=== PATIENT | male | born 1965 | race Caucasian/White ===

== ENCOUNTER 2019-01-29 14:56 | Emergency (ER) | payer BC, OTHER ==
--- NOTE | 2019-01-29 15:32 | RAD REPORT ---
EXAM DESCRIPTION: RAD - Chest Single View - 01/29/2019 3:25 pm CLINICAL HISTORY: Hypertension, headache COMPARISON: March 2010 TECHNIQUE: AP portable chest image was obtained 1519 hours . FINDINGS: No focal lung parenchymal process. Interstitial pattern is similar to comparison. Heart an d vasculature are normal. No measurable pleural effusion and no pneumothorax. No acute bony abnormali ty seen. No acute aortic findings suspected. IMPRESSION: No acute cardiopulmonary process.
--- NOTE | 2019-01-29 15:34 | EKG ---
Test Date: 2019-01-29 Test Time: 15:32:06 Law Tutor: PHILIPPE MEASUREMENT RESULTS: Intervals: Rate: 69 WA: 142 QRSD: 108 QT: 386 QTc: 413 [place]: P: 53 WA: 142 QRS: 58 T: 56 INTERPRETIVE STATEMENTS: Normal sinus rhythm Normal ECG Compared to ECG 04/16/2010 07:14:56 Sinus tachycardia no longer present Electronically Signed On 01-29-19 15:33:55 COLLAR STITCHER by Americo Ackerman
--- NOTE | 2019-01-29 15:37 | RAD REPORT ---
EXAM DESCRIPTION: CT - Head Brain Wo Cont - 01/29/2019 3:26 pm CLINICAL HISTORY: Hypertension, headache COMPARISON: None. TECHNIQUE: Axial 5 mm thick images of the head were obtained without IV contrast. All CT scans are performed using dose optimization technique as appropriate and may include automated exposure control or mA/KV adjustment according to patient size. FINDINGS: No intracranial hemorrhage, mass, edema or shift of mid-line structures. No acute infarcti on changes seen. No abnormal extra-axial fluid collections. Ventricles are normal. Mastoid air cells and visualized portions of the paranasal sinuses are clear. No acute bony findings. IMPRESSION: Negative non-contrast CT head examination.
[2019-01-29 15:43] LABS: Protime INR 0.96
[2019-01-29 15:49] LABS: Absolute Lymphocytes (CBC) 3.3 K/uL (0.7-4.9); Basophils % 0.8 % (0-1.3); Hematocrit 40.5 % (39.6-49.0); Lymphocytes % 43.1 % (15.3-44.8); MPV 8.4 fL (7.6-11.3); RBC Red Blood Cell Count 4.24 M/uL (4.33-5.43)
[2019-01-29] MEDS ORDERED: ACETAMINOPHEN 325 MG TABLET ONE (15:55)
[2019-01-29] MEDS ORDERED: LORAZEPAM 0.5 MG TABLET ONE (15:55)
[2019-01-29 16:01] LABS: ALT/SGPT 34 U/L (12-78); AST/SGOT 20 U/L (15-37); Albumin 3.6 g/dL (3.4-5.0); Alkaline Phosphatase 82 U/L (45-117); BUN Blood Urea Nitrogen 14 mg/dL (7-18); Bicarbonate 28 mmol/L (21-32); Bilirubin Direct < 0.1 mg/dL (0-0.2); Bilirubin Total 0.3 mg/dL (0.2-1.0); Glucose Level 96 mg/dL (74-106); Magnesium 2.3 mg/dL (1.8-2.4); NT PRO-BNP 33 pg/mL (<125); Potassium 3.8 mmol/L (3.5-5.1); Protein, Total 7.4 g/dL (6.4-8.2); Sodium Level 140 mmol/L (136-145); Troponin (Emerg Dept Use Only) < 0.02 ng/mL (0.0-0.045)
[2019-01-29] MEDS ORDERED: KETOROLAC 30 MG/ML INJ ONE (16:56)
--- NOTE | 2019-01-29 17:03 | ER ---
Nurse's Notes [facility] Name: Americo Gonzales Age: 53 yrs Sex: Male : 1965 Arrival Date: 01/29/2019 Time: 15:01 Bed 14 Private MD: Diagnosis: Essential (primary) hypertension;Headache Presentation: 01/29 15:05 Presenting complaint: Patient states: high bp reading at home, 184/104, +headache X 2 iw days, not on BP medicine, Advil not helping headache, called Dr. Ackerman office was told to come to ER, denies chest pain. Transition of care: patient was not received from another setting of care. Onset of symptoms was January 27, 2019. Risk Assessment: Do you want to hurt yourself or someone else? Patient reports no desire to harm self or others. Initial Sepsis Screen: Does the patient meet any 2 criteria? No. Patient's initial sepsis screen is negative. Does the patient have a suspected source of infection? No. Patient's initial sepsis screen is negative. Care prior to arrival: None. 15:05 Method Of Arrival: Ambulatory iw 15:05 Acuity: JACKSON 3 iw Historical: - Allergies: 15:08 PENICILLINS; iw - Home Meds: 15:08 None [Active]; iw - PMHx: 15:08 SVT 10 years ago; iw - PSHx: 15:08 left ring finger; left ankle; Appendectomy; iw - Immunization history:: Adult Immunizations not up to date. - Social history:: Smoking status: Patient/guardian denies using tobacco. - Ebola Screening: : Patient negative for fever greater than or equal to 101.5 degrees Fahrenheit, and additional compatible Ebola Virus Disease symptoms Patient denies exposure to infectious person Patient denies travel to an Ebola-affected area in the 21 days before illness onset No symptoms or risks identified at this time. Screenin:09 Abuse screen: Denies threats or abuse. Nutritional screening: No deficits noted. tw2 Tuberculosis screening: No symptoms or risk factors identified. Fall Risk None identified. Assessment: 15:10 General: Appears in no apparent distress. obese, Behavior is calm, cooperative, tw2 appropriate for age. Pain: Denies pain. Neuro: Level of Consciousness is awake, alert, obeys commands, Oriented to person, place, time, situation. Cardiovascular: Heart tones S1 S2 Patient's skin is warm and dry. Respiratory: Airway is patent Respiratory effort is even, unlabored, Respiratory pattern is regular, symmetrical, Breath sounds are clear bilaterally. GI: No signs and/or symptoms were reported involving the gastrointestinal system. Abdomen is round non-distended, obese, Bowel sounds present X 4 quads. : No signs and/or symptoms were reported regarding the genitourinary system. EENT: No signs and/or symptoms were reported regarding the EENT system. Derm: No signs and/or symptoms reported regarding the dermatologic system. Musculoskeletal: Range of motion: intact in all extremities. 15:36 Reassessment: Patient appears in no apparent distress at this time. No changes from tw2 previously documented assessment. Patient and/or family updated on plan of care and expected duration. Pain level reassessed. Patient is alert, oriented x 3, equal unlabored respirations, skin warm/dry/pink. 16:20 Reassessment: Patient appears in no apparent distress at this time. No changes from tw2 previously documented assessment. Patient and/or family updated on plan of care and expected duration. Pain level reassessed. Patient is alert, oriented x 3, equal unlabored respirations, skin warm/dry/pink. 16:50 Reassessment: Provider at bedside at this time with results. tw2 17:20 Reassessment: Patient appears in no apparent distress at this time. No changes from tw2 previously documented assessment. Patient and/or family updated on plan of care and expected duration. Pain level reassessed. Patient is alert, oriented x 3, equal unlabored respirations, skin warm/dry/pink. Vital Signs: 15:08 BP 177 / 94; Pulse 73; Resp 16; Temp 98.0; Pulse Ox 98% on R/A; Weight 140.61 kg; iw Height 6 ft. 0 in. (182.88 cm); Pain 5/10; 15:36 BP 157 / 91; Pulse 72; Resp 17; Pulse Ox 95% on R/A; tw2 16:18 BP 143 / 93; Pulse 78; Resp 17; Pulse Ox 95% on R/A; tw2 16:51 BP 160 / 94; Pulse 75; Resp 17; Pulse Ox 100% on R/A; tw2 15:08 Body Mass Index 42.04 (140.61 kg, 182.88 cm) iw ED Course: 15:01 Patient arrived in ED. mr 15:07 Triage completed. iw 15:08 Arm band placed on. iw 15:08 Bed in low position. Call light in reach. tw2 15:09 Melissa Urbina, RN is Primary Nurse. tw2 15:11 Vidhya Medrano FNP-C is PHCP. snw 15:11 Aly Sheth MD is Attending Physician. snw 15:25 CT Head Brain wo Cont In Process Unspecified. EDMS 15:27 XRAY Chest (1 view) In Process Unspecified. EDMS 15:36 Inserted saline lock: 20 gauge in right antecubital area, using aseptic technique. tw2 Blood collected. 17:20 No provider procedures requiring assistance completed. IV discontinued, intact, tw2 bleeding controlled, No redness/swelling at site. Pressure dressing applied. Administered Medications: 15:56 Drug: Tylenol 650 mg Route: PO; tw2 16:57 Follow up: Response: No adverse reaction tw2 15:56 Drug: Ativan 0.5 mg Route: PO; tw2 16:52 Follow up: Response: No adverse reaction tw2 16:57 Drug: TORadol - Ketorolac 15 mg Route: IVP; Site: right antecubital; tw2 17:15 Follow up: Response: No adverse reaction; Pain is decreased tw2 Outcome: 17:02 Discharge ordered by . snw 17:20 Discharged to home ambulatory. tw2 17:20 Condition: stable 17:20 Discharge instructions given to patient, Instructed on discharge instructions, follow up and referral plans. no drinking with medication, no driving heavy equipment, medication usage, Demonstrated understanding of instructions, follow-up care, medications, Prescriptions given X 1. 17:21 Patient left the ED. tw2 Signatures: Dispatcher [employer] EDWA Vidhya Medrano FNP-C FNP-Toshia Yi Carpio Vira Alexander, RN RN Melissa Urbina RN RN tw2
--- NOTE | 2019-01-29 17:03 | EDPHYS ---
Physician Documentation [facility] Name: Americo Gonzales Age: 53 yrs Sex: Male : 1965 Arrival Date: 01/29/2019 Time: 15:01 Bed 14 Private MD: ED Physician Aly Sheth HPI: 01/29 15:31 This 53 yrs old Male presents to ER via Ambulatory with complaints of High snw Blood Pressure. 15:31 The patient has elevated blood pressure and discovered this at home, with a home snw device. Onset: The symptoms/episode began/occurred acutely, and became persistent. Associated signs and symptoms: Pertinent positives: headache. Severity of symptoms: At its worst the blood pressure was moderate, severe. The patient has not experienced similar symptoms in the past. The patient has not recently seen a physician. pt has yearly work physicals, no PCP, appt with Dr. Ackerman 02/09/19. Historical: - Allergies: 15:08 PENICILLINS; iw - Home Meds: 15:08 None [Active]; iw - PMHx: 15:08 SVT 10 years ago; iw - PSHx: 15:08 left ring finger; left ankle; Appendectomy; iw - Immunization history:: Adult Immunizations not up to date. - Social history:: Smoking status: Patient/guardian denies using tobacco. - Ebola Screening: : Patient negative for fever greater than or equal to 101.5 degrees Fahrenheit, and additional compatible Ebola Virus Disease symptoms Patient denies exposure to infectious person Patient denies travel to an Ebola-affected area in the 21 days before illness onset No symptoms or risks identified at this time. ROS: 15:26 Constitutional: Negative for fever, chills, and weight loss, Eyes: Negative for injury, snw pain, redness, and discharge, ENT: Negative for injury, pain, and discharge, Neck: Negative for injury, pain, and swelling, Cardiovascular: Negative for chest pain, palpitations, and edema, Respiratory: Negative for shortness of breath, cough, wheezing, and pleuritic chest pain, Abdomen/GI: Negative for abdominal pain, nausea, vomiting, diarrhea, and constipation, Back: Negative for injury and pain, : Negative for injury, bleeding, discharge, and swelling, MS/Extremity: Negative for injury and deformity, Skin: Negative for injury, rash, and discoloration, Psych: Negative for depression, anxiety, suicide ideation, homicidal ideation, and hallucinations. 15:26 Neuro: Positive for headache. Exam: 15:26 Constitutional: This is a well developed, well nourished patient who is awake, alert, snw and in no acute distress. Head/Face: Normocephalic, atraumatic. Eyes: Pupils equal round and reactive to light, extra-ocular motions intact. Lids and lashes normal. Conjunctiva and sclera are non-icteric and not injected. Cornea within normal limits. Periorbital areas with no swelling, redness, or edema. ENT: Nares patent. No nasal discharge, no septal abnormalities noted. Tympanic membranes are normal and external auditory canals are clear. Oropharynx with no redness, swelling, or masses, exudates, or evidence of obstruction, uvula midline. Mucous membranes moist. Neck: Trachea midline, no thyromegaly or masses palpated, and no cervical lymphadenopathy. Supple, full range of motion without nuchal rigidity, or vertebral point tenderness. No Meningismus. Chest/axilla: Normal chest wall appearance and motion. Nontender with no deformity. No lesions are appreciated. Cardiovascular: Regular rate and rhythm with a normal S1 and S2. No gallops, murmurs, or rubs. Normal PMI, no JVD. No pulse deficits. Respiratory: Lungs have equal breath sounds bilaterally, clear to auscultation and percussion. No rales, rhonchi or wheezes noted. No increased work of breathing, no retractions or nasal flaring. Abdomen/GI: Soft, non-tender, with normal bowel sounds. No distension or tympany. No guarding or rebound. No evidence of tenderness throughout. Back: No spinal tenderness. No costovertebral tenderness. Full range of motion. Skin: Warm, dry with normal turgor. Normal color with no rashes, no lesions, and no evidence of cellulitis. MS/ Extremity: Pulses equal, no cyanosis. Neurovascular intact. Full, normal range of motion. Neuro: Awake and alert, GCS 15, oriented to person, place, time, and situation. Cranial nerves II-XII grossly intact. Motor strength 5/5 in all extremities. Sensory grossly intact. Cerebellar exam normal. Normal gait. Psych: Awake, alert, with orientation to person, place and time. Behavior, mood, and affect are within normal limits. Vital Signs: 15:08 BP 177 / 94; Pulse 73; Resp 16; Temp 98.0; Pulse Ox 98% on R/A; Weight 140.61 kg; iw Height 6 ft. 0 in. (182.88 cm); Pain 5/10; 15:36 BP 157 / 91; Pulse 72; Resp 17; Pulse Ox 95% on R/A; tw2 16:18 BP 143 / 93; Pulse 78; Resp 17; Pulse Ox 95% on R/A; tw2 16:51 BP 160 / 94; Pulse 75; Resp 17; Pulse Ox 100% on R/A; tw2 15:08 Body Mass Index 42.04 (140.61 kg, 182.88 cm) iw MDM: 15:11 Patient medically screened. snw 15:27 Data reviewed: vital signs, nurses notes. Data interpreted: Pulse oximetry: on room air snw is 98 %. Counseling: I had a detailed discussion with the patient and/or guardian regarding: the historical points, exam findings, and any diagnostic results supporting the discharge/admit diagnosis, the presence of at least one elevated blood pressure reading (>120/80) during this emergency department visit, lab results, radiology results, the need for outpatient follow up. ED course: + basal garcia x 2 days, pressure. 01/29 15:12 Order name: LFT's; Complete Time: 16:27 snw 01/29 15:12 Order name: Basic Metabolic Panel; Complete Time: 16:27 snw 01/29 15:12 Order name: CBC with Diff; Complete Time: 15:55 snw 01/29 15:12 Order name: Magnesium; Complete Time: 16:27 snw 01/29 15:12 Order name: NT PRO-BNP; Complete Time: 16:27 snw 01/29 15:12 Order name: PT-INR; Complete Time: 15:55 snw 01/29 15:12 Order name: Troponin (emerg Dept Use Only); Complete Time: 16:27 snw 01/29 15:12 Order name: XRAY Chest (1 view); Complete Time: 15:42 snw 01/29 15:12 Order name: EKG; Complete Time: 15:13 snw 01/29 15:12 Order name: Cardiac monitoring; Complete Time: 15:12 snw 01/29 15:12 Order name: CT Head Brain wo Cont; Complete Time: 15:42 snw 01/29 15:12 Order name: EKG - Nurse/Tech; Complete Time: 15:35 snw 01/29 15:12 Order name: IV Saline Lock; Complete Time: 15:35 snw 01/29 15:12 Order name: Labs collected and sent; Complete Time: 15:35 snw 01/29 15:12 Order name: O2 Per Protocol; Complete Time: 15:13 snw 01/29 15:12 Order name: O2 Sat Monitoring; Complete Time: 16:02 snw Administered Medications: 15:56 Drug: Tylenol 650 mg Route: PO; tw2 16:57 Follow up: Response: No adverse reaction tw2 15:56 Drug: Ativan 0.5 mg Route: PO; tw2 16:52 Follow up: Response: No adverse reaction tw2 16:57 Drug: TORadol - Ketorolac 15 mg Route: IVP; Site: right antecubital; tw2 17:15 Follow up: Response: No adverse reaction; Pain is decreased tw2 Disposition: 01/30 07:22 Co-signature as Attending Physician, Aly Sheth MD I agree with the assessment and kdr plan of care. Disposition: 01/29/19 17:02 Discharged to Home. Impression: Essential (primary) hypertension, Headache. - Condition is Stable. - Discharge Instructions: General Headache Without Cause, Hypertension, How to Take Your Blood Pressure, [id number], DASH Eating Plan, Rehydration, Adult, Managing Your Hypertension, Form - Blood Pressure Record Sheet. - Prescriptions for Fiorinal 50- 325-40 mg Oral Capsule - take 1 capsule by ORAL route every 4 hours As needed - not to exceed 6 capsules per day; 20 capsule. - Medication Reconciliation Form, Thank You Letter, Antibiotic Education, Prescription Opioid Use, Work release form form. - Follow up: Private Physician; When: 1 week; Reason: Recheck today's complaints, Continuance of care, Re-evaluation by your physician. Follow up: Emergency Department; When: As needed; Reason: Worsening of condition. Signatures: Dispatcher [employer] Aly Arriaga MD MD kdr Therrien, Shelly, TURNTABLE WORKER-C TURNTABLE WORKER-Csnw Vira Monteiro RN RN iw Melissa Urbina RN RN tw2 Corrections: (The following items were deleted from the chart) 01/29 17:21 17:02 01/29/2019 17:02 Discharged to Home. Impression: Essential (primary) tw2 hypertension; Headache. Condition is Stable. Forms are Work release form, Medication Reconciliation Form, Thank You Letter, Antibiotic Education, Prescription Opioid Use. Follow up: Private Physician; When: 1 week; Reason: Recheck today's complaints, Continuance of care, Re-evaluation by your physician. Follow up: Emergency Department; When: As needed; Reason: Worsening of condition. snw
[2019-01-29 18:54] VITALS: TEMP 98
[2019-01-29 18:58] VITALS: BP 160/94; O2SAT 100
== END 2019-01-29 17:21 | disposition home or self-care (01) ==
LOC: ER 14:56
DX: I10 Essential (primary) hypertension (principal); Z88.0 Allergy status to penicillin
CPT/HCPCS: 36415; 70450; 71045; 80048; 80076; 83735; 83880; 84484; 85025; 85610; 93005; 96374; 99284

== ENCOUNTER 2020-01-18 09:58 | Observation (INO) | payer BC ==
[2020-01-18 10:53] LABS: Absolute Lymphocytes (CBC) 2.4 K/uL (0.7-4.9); Basophils % 0.9 % (0-1.3); Lymphocytes % 36.7 % (15.3-44.8); MPV 8.2 fL (7.6-11.3); RBC Red Blood Cell Count 4.48 M/uL (4.33-5.43)
[2020-01-18] MEDS ORDERED: NA CHLORIDE 0.9% 1,000 ML ONE (10:53)
[2020-01-18 11:02] LABS: Protime INR 1.03
--- OUTSIDE RECORDS SUMMARY | 2020-01-18 11:10 | XMS REPORT | Clinical Summary ---
:1965 Author Organization [facility] Address [address] [place] [id number] Care Team Providers Name Role Phone Asked, Pcp Primary Care Provider Unavailable Allergies Not on File Medications Not on file Active Problems Not on file Encounters Date Type Specialty Care Team Description 12/30/2019 Clinical Support Corporate Wellness Faith Wright MD 12/30/2019 Travel after 01/17/2019 Immunizations Name Administration Dates Next Due FLUCELVAX QUAD PF 12/30/2019 Social History Tobacco Use Types Packs/Day Years Used Date Never Assessed Sex Assigned at Date Recorded Not on file COVID-19 Exposure Response Date Recorded In the last month, have you been in contact with No / Unsure 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 Last Filed Vital Signs Not on file Plan of Treatment Health Maintenance Due Date Last Done Comments COLONOSCOPY SCREENING 2015 SHINGLES VACCINES (#1) 2015 INFLUENZA VACCINE Completed 12/30/2019 Results Not on fileafter 01/17/2019 Advance Directives For more information, please contact: [phone] Type Date Recorded Patient Data Reviewer Explanati on Advance Directives, Living Will and Medical Power of Home Health Occupational Therapist
--- OUTSIDE RECORDS SUMMARY | 2020-01-18 11:10 | XMS REPORT | Continuity of Care Document ---
:1965 Author Organization [facility] t Address [address] [place] [address] Care Team Providers Name Role Phone Asked, Pcp Primary Care Physician Unavailable Adriana ORTEGA Attending Clinician Payers Payer Name Policy Type Policy Effective Date Expiration Date Sour ce Number BCBSBCBS CHOICE [id number] 2016 [place] PPO/FEDERAL 00:00:00 [employer] EMPL [id number] 2016-Presen tPPO Problems This patient has no known problems. Allergies, Adverse Reactions, Alerts This patient has no known allergies or adverse reactions. Social History Social Habit Start Date Stop Date Quantity Comments Source Sex Assigned At [place] Exposure to SARS-CoV-2 Not sure Oscar Quintanaist (event) Medications This patient has no known medications. Immunizations Ordered Immunization Filled Immunization Date Status Commen ts Source Name Name FLUCELVAX QUAD PF 2019-12-30 [facility] 00:00:00 [employer] Procedures This patient has no known procedures. Plan of Care Planned Activity Planned Date Details Comments Source Future Scheduled 2015 COLONOSCOPY SCREENING [facility] 00:00:00 [code = COLONOSCOPY SCREENING] Future Scheduled 2015 SHINGLES VACCINES [place] [facility] 00:00:00 (#1) [code = SHINGLES VACCINES (#1)] Encounters Start End Encounter Admission Attending Care Care Encounter Source Date/Time Date/Time Type Type Clinicians Facility Department ID 2019-12-30 2019-12-30 Outpatient [facility] [id number] [place] 00:00:00 00:00:[address] [facility] [address] Results This patient has no known results.
--- NOTE | 2020-01-18 11:12 | RAD REPORT ---
EXAM DESCRIPTION: RAD - Chest Single View - 01/18/2020 10:50 am CLINICAL HISTORY: CHEST PAIN COMPARISON: January 2019 TECHNIQUE: AP portable chest image was obtained 01/18/2020 10:50 am . FINDINGS: Lungs are clear. Heart and vasculature are normal. No measurable pleural effusion and no p neumothorax. No acute bony abnormality seen. No acute aortic findings suspected. IMPRESSION: No acute cardiopulmonary process. No significant change from comparison study.
[2020-01-18 11:17] LABS: ALT/SGPT 34 U/L (12-78); AST/SGOT 21 U/L (15-37); Albumin 3.6 g/dL (3.4-5.0); Alkaline Phosphatase 80 U/L (45-117); BUN Blood Urea Nitrogen 17 mg/dL (7-18); Bicarbonate 29 mmol/L (21-32); Bilirubin Direct < 0.1 mg/dL (0-0.2); Bilirubin Total 0.4 mg/dL (0.2-1.0); Glucose Level 134 mg/dL (74-106); Magnesium 2.4 mg/dL (1.8-2.4); NT PRO-BNP 1745 pg/mL (<125); Potassium 3.8 mmol/L (3.5-5.1); Protein, Total 7.8 g/dL (6.4-8.2); Sodium Level 141 mmol/L (136-145); Troponin (Emerg Dept Use Only) < 0.02 ng/mL (0.0-0.045)
--- NOTE | 2020-01-18 12:08 | ER ---
Nurse's Notes [facility] Name: Americo Gonzales Age: 54 yrs Sex: Male : 1965 Arrival Date: 01/18/2020 Time: 09:59 Bed 7 Private MD: Garrison Xiong Diagnosis: Atrial fibrillation and flutter;Cough;Dyspnea Presentation: 01/17 10:19 Chief complaint: Patient states: Pt scheduled an appointment today with PCP, Dr. Xiong for cough and mild shortness of breath x 1 week. EKG was obtained at Dr. Xiong's office which showed elevated HR at 140 bpm. Pt was sent to ED for further evaluation. Denies CP. Coronavirus screen: cough unrelated to allergies, shortness of breath, Client presents with at least one sign or symptom that may indicate coronavirus-19. Standard/surgical mask placed on the client. Provider contacted for isolation considerations. Ebola Screen: Patient denies exposure to infectious person. Patient denies travel to an Ebola-affected area in the 21 days before illness onset. Initial Sepsis Screen: Does the patient meet any 2 criteria? HR > 90 bpm. No. Patient's initial sepsis screen is negative. Does the patient have a suspected source of infection? No. Patient's initial sepsis screen is negative. Risk Assessment: Do you want to hurt yourself or someone else? Patient reports no desire to harm self or others. Onset of symptoms was January 11, 2020. 10:19 Method Of Arrival: Wheelchair ss 10:19 Acuity: JACKSON 2 ss Historical: - Allergies: 10:23 PENICILLINS; ss - Home Meds: 10:23 valsartan oral oral [Active]; Atenolol Oral [Active]; ss - PMHx: 10:23 SVT 10 years ago; Hypertension; ss - PSHx: 10:23 left ring finger; left ankle; Appendectomy; ss - Immunization history:: Adult Immunizations up to date. - Social history:: Smoking status: Patient denies any tobacco usage or history of. Screenin:23 Abuse screen: Denies threats or abuse. Denies injuries from another. Nutritional ss screening: No deficits noted. Tuberculosis screening: Never had TB. Fall Risk None identified. Assessment: 10:23 General: Appears comfortable, Behavior is calm, cooperative. General: Appears obese. ss Pain: Denies pain. Neuro: Level of Consciousness is awake, alert, obeys commands, Oriented to person, place, time, situation, Courtroom Clerk are equal bilaterally Moves all extremities. Full function Speech is normal, Facial symmetry appears normal. Cardiovascular: Pulses are palpable in right radial artery and left radial artery Edema is absent. Cardiovascular: Chest pain is denied. Respiratory: Reports cough that is since x 1week Airway is patent Respiratory effort is even, unlabored, Respiratory pattern is regular, symmetrical, Denies pain with respiration, pain with cough, pain with movement. Respiratory: Breath sounds are clear bilaterally. GI: Patient currently denies abdominal pain, diarrhea, nausea, vomiting. : No signs and/or symptoms were reported regarding the genitourinary system. Denies burning with urination, urinary frequency. EENT: Oral mucosa is moist. Derm: Skin is intact, is healthy with good turgor, Skin is clammy, Skin temperature is cool. Musculoskeletal: Circulation, motion, and sensation intact. 10:26 Reassessment: cardiac rhythm: AFIB. ss 11:13 Reassessment: COVID-19 swab sent to lab at this time. To be ran in house. ss 12:01 Reassessment: No changes from previously documented assessment. ss 13:00 Reassessment: Patient appears in no apparent distress at this time. Patient and/or ss family updated on plan of care and expected duration. Pain level reassessed. Patient is alert, oriented x 3, equal unlabored respirations, skin warm/dry/pink. 14:04 Reassessment: Patient appears in no apparent distress at this time. Patient and/or ss family updated on plan of care and expected duration. Pain level reassessed. Patient is alert, oriented x 3, equal unlabored respirations, skin warm/dry/pink. Pt aware that COVID results are negative. Spoke with Estee Rotary Pump Operator who reports she will assign room on 2nd floor when one becomes available. Offered patient food, water and urinal. Pt states he is okay at this time. Patient denies pain at this time. Vital Signs: 10:19 BP 108 / 90; Pulse 124; Resp 17; Temp 98.2(O); Pulse Ox 97% on R/A; Weight 146.96 kg; ss Height 6 ft. 0 in. (182.88 cm); Pain 0/10; 11:01 BP 130 / 86; Pulse 108; Resp 18; Pulse Ox 95% on R/A; Pain 0/10; ss 14:06 BP 135 / 91; Pulse 119; Resp 16; Pulse Ox 97% on R/A; Pain 0/10; ss 15:24 BP 121 / 96; Pulse 124; Resp 16; Pulse Ox 100% on R/A; Pain 0/10; ss 10:19 Body Mass Index 43.94 (146.96 kg, 182.88 cm) ED Course: 09:59 Patient arrived in ED. ag5 09:59 Garrison Xiong MD is Private Physician. ag5 10:18 Javan Damon MD is Attending Physician. ps1 10:21 Triage completed. ss 10:23 Arm band placed on right wrist. ss 10:23 Patient has correct armband on for positive identification. Bed in low position. Call ss light in reach. compliance monitor on. Pulse ox on. NIBP on. 10:23 Patient maintains SpO2 saturation greater than 95% on room air. 10:27 EKG done, by ED staff, reviewed by Javan Damon MD. ny 10:37 Karishma Smith RN is Primary Nurse. 10:37 Inserted saline lock: 20 gauge in right antecubital area, using aseptic technique. Blood collected. 10:50 XRAY Chest (1 view) In Process Unspecified. EDMS 12:07 Francisco J Soni MD is Hospitalizing Provider. ps1 15:17 No provider procedures requiring assistance completed. Patient admitted, IV remains in ca1 place. Administered Medications: 10:42 Drug: NS 0.9% 1000 ml Route: IV; Rate: 1 bolus; Site: right antecubital; 11:35 Follow up: IV Status: Completed infusion; IV Intake: 1000ml ss Intake: 11:35 IV: 1000ml; Total: 1000ml. Outcome: 12:08 Decision to Hospitalize by Provider. ps1 15:36 Admitted to Tele accompanied by tech, via wheelchair, with chart, Report called to kiki Valencia RN 15:36 Condition: good 15:36 Instructed on the need for admit. 15:36 Patient left the ED. Signatures: Dispatcher [employer] EDDC Karishma Smith RN RN Guillermina Cooley ny Javan Damon MD MD ps1 Leyla Carrington RN RN ca1 Russ, Nithin ag5
--- NOTE | 2020-01-18 12:08 | EDPHYS ---
Physician Documentation [facility] Name: Americo Gonzales Age: 54 yrs Sex: Male : 1965 Arrival Date: 01/18/2020 Time: 09:59 Bed 7 Private MD: Garrison Xiong ED Physician Javan Damon HPI: 01/17 10:42 This 54 yrs old Male presents to ER via Wheelchair with complaints of ps1 Abnormal EKG. 10:[address]'s office for abnormal EKG and tachycardia. Patient had a COVID ps1 test yesterday for symptoms at [facility]. Pending results. Went to for symptoms noticed to have elevated HR and appeared to be in Afib. No chest pain or palpitations. Has had generalized fatigue, cough, and symptoms r/t COVID. No hx of atrial fibrillation in past. On Valsartan/Hctz for BP and lower extremity edema. . Historical: - Allergies: 10:23 PENICILLINS; ss - Home Meds: 10:23 valsartan oral oral [Active]; Atenolol Oral [Active]; ss - PMHx: 10:23 SVT 10 years ago; Hypertension; ss - PSHx: 10:23 left ring finger; left ankle; Appendectomy; ss - Immunization history:: Adult Immunizations up to date. - Social history:: Smoking status: Patient denies any tobacco usage or history of. ROS: 10:42 Eyes: Negative for injury, pain, redness, and discharge. ps1 10:42 Abdomen/GI: Negative for abdominal pain, nausea, vomiting, diarrhea, and constipation, MS/Extremity: Negative for injury and deformity, Skin: Negative for injury, rash, and discoloration, Neuro: Negative for headache, weakness, numbness, tingling, and seizure. 10:42 Constitutional: Positive for chills, fatigue, malaise. 10:42 Cardiovascular: Positive for palpitations. 10:42 Respiratory: Positive for cough, shortness of breath, on exertion. Exam: 10:42 Constitutional: This is a well developed, well nourished patient who is awake, alert, ps1 and in no acute distress. Head/Face: Normocephalic, atraumatic. Eyes: Pupils equal round and reactive to light, extra-ocular motions intact. Lids and lashes normal. Conjunctiva and sclera are non-icteric and not injected. Chest/axilla: Normal chest wall appearance and motion. Nontender with no deformity. No lesions are appreciated. Respiratory: Lungs have equal breath sounds bilaterally, clear to auscultation and percussion. No rales, rhonchi or wheezes noted. No increased work of breathing, no retractions or nasal flaring. Abdomen/GI: Soft, non-tender, with normal bowel sounds. No distension or tympany. No guarding or rebound. No evidence of tenderness throughout. Skin: Warm, dry with normal turgor. Normal color with no rashes, no lesions, and no evidence of cellulitis. MS/ Extremity: Pulses equal, no cyanosis. Neurovascular intact. Full, normal range of motion. Neuro: Awake and alert, GCS 15, oriented to person, place, time, and situation. Cranial nerves II-XII grossly intact. Sensory grossly intact. Psych: Awake, alert, with orientation to person, place and time. Behavior, mood, and affect are within normal limits. 10:42 Cardiovascular: Rate: tachycardic, Rhythm: irregularly irregular, Pulses: no pulse deficits are appreciated. Vital Signs: 10:19 BP 108 / 90; Pulse 124; Resp 17; Temp 98.2(O); Pulse Ox 97% on R/A; Weight 146.96 kg; ss Height 6 ft. 0 in. (182.88 cm); Pain 0/10; 11:01 BP 130 / 86; Pulse 108; Resp 18; Pulse Ox 95% on R/A; Pain 0/10; ss 14:06 BP 135 / 91; Pulse 119; Resp 16; Pulse Ox 97% on R/A; Pain 0/10; ss 15:24 BP 121 / 96; Pulse 124; Resp 16; Pulse Ox 100% on R/A; Pain 0/10; ss 10:19 Body Mass Index 43.94 (146.96 kg, 182.88 cm) MDM: 10:59 Patient medically screened. ps1 12:08 Differential Diagnosis sepsis, flu, afib,chf,acs, and others. Data reviewed: vital ps1 signs, nurses notes, lab test result(s), EKG, radiologic studies, and as a result, I will admit patient. 01/17 10:33 Order name: Basic Metabolic Panel; Complete Time: 11:20 [facility] 01/17 10:33 Order name: CBC with Diff; Complete Time: 10:59 [facility] 01/17 10:33 Order name: LFT's; Complete Time: 11: [facility] 01/17 10:33 Order name: Magnesium; Complete Time: 11: [facility] 01/17 10:33 Order name: NT PRO-BNP; Complete Time: 11: [facility] 01/17 10:33 Order name: PT-INR; Complete Time: 11: [facility] 01/17 10:33 Order name: Troponin (emerg Dept Use Only); Complete Time: 11: [facility] 01/17 10:33 Order name: XRAY Chest (1 view); Complete Time: 11: [facility] 01/17 10:33 Order name: EKG; Complete Time: 10:34 [facility] 01/17 10:33 Order name: Cardiac monitoring; Complete Time: 10:37 [facility] 01/17 12:51 Order name: CONS Physician Consult EDOH 01/17 13:31 Order name: SARS-COV-2 RT PCR; Complete Time: 13:31 [facility] 01/17 10:33 Order name: EKG - Nurse/Tech; Complete Time: 10:37 [facility] 01/17 10:33 Order name: IV Saline Lock; Complete Time: 10:37 [facility] 01/17 10:33 Order name: Labs collected and sent; Complete Time: 10:37 [facility] 01/17 10:33 Order name: O2 Per Protocol; Complete Time: 10:37 [facility] 01/17 10:33 Order name: O2 Sat Monitoring; Complete Time: 10:37 ps1 Administered Medications: 10:42 Drug: NS 0.9% 1000 ml Route: IV; Rate: 1 bolus; Site: right antecubital; ss 11:35 Follow up: IV Status: Completed infusion; IV Intake: 1000ml ss Disposition: 01/18/20 12:08 Hospitalization ordered by Francisco J Soni for Observation. Preliminary diagnosis are Atrial fibrillation and flutter, Cough, Dyspnea. - Bed requested for Telemetry/MedSurg (observation). - Status is Observation. ss - Condition is Stable. - Problem is new. - Symptoms have improved. Signatures: Dispatcher [employer] EDOH Estee Hill RN RN Karishma Smith RN RN Javan Damon MD MD ps1 Corrections: (The following items were deleted from the chart) 12:29 10:34 CORONAVIRUS+MR.LAB.BRZ ordered. EDMS EDMS 15:13 12:08 Hospitalization Ordered by Francisco J Soni MD for Observation. Preliminary dw diagnosis is Atrial fibrillation and flutter; Cough; Dyspnea. Bed requested for Telemetry/MedSurg (observation). Status is Observation. Condition is Stable. Problem is new. Symptoms have improved. ps1 15:36 15:13 01/18/2020 12:08 Hospitalization Ordered by Francisco J Soni MD for Observation. ss Preliminary diagnosis is Atrial fibrillation and flutter; Cough; Dyspnea. Bed requested for Telemetry/MedSurg (observation). Status is Observation. Condition is Stable. Problem is new. Symptoms have improved. dw
[2020-01-18] MEDS ORDERED: DIGOXIN 0.25 MG/ML AMP IV ONE (12:49)
--- NOTE | 2020-01-18 13:18 | P.HP ---
Certification for Inpatient Patient admitted to: Observation With expected LOS: <2 Midnights Practitioner: I am a practitioner with admitting privileges, knowledge of patient current condition, hospital course, and medical plan of care. Services: Services provided to patient in accordance with Admission requirements found in Title 42 Section 412.3 of the Code of Federal Regulations Patient History Date of Service: 01/18/20 Primary Care Provider: Loc Reason for admission: New onset AFib with RVR History of Present Illness: 54-year-old male, PMH: HTN, HLD who was sent to ED from PCPs office due to new discovery of atrial fibrillation. Patient states over the past week he has been having and mildly productive cough and fatigue. He states he typically has bronchitis around this time. He went to [facility] yesterday and had a COVID test - no result yet. Symptoms persisted so he presented his PCPs office and there he was noted to be in AFib. Patient states he did not have any palpitations until arrival to the ED, and now endorses some slight dizziness as well. Otherwise he denies any shortness of breath, no chest pain, no abdominal pain, no fevers/chills, no diarrhea, no change in urinary habits. In the ED he was noted to be AFib with RVR in the 120s and improved down to 100 without any intervention. CBC, a CMP, troponin were all unremarkable. BNP was noted to be elevated at 1745. CXR: No acute cardiopulmonary process COVID negative. He does report a recent change in his blood pressure medication 2-3 weeks ago. He was previously on diltiazem for hypertension but was stopped due to some swelling in his legs. He denies any history of atrial fibrillation. He does report a "short run of SVT" approximately 10 years ago. Allergies Penicillins Allergy (Verified 01/18/20 13:15) UNK Home Medications: Atenolol [Tenormin] 1 tab PO DAILY 01/18/20 Guaifenesin [Mucinex] 1 tab PO PRN PRN 01/18/20 Valsartan/Hydrochlorothiazide [Valsartan-Hctz 320-25 mg Tab] 1 tab PO DAILY 01/18/20 - Past Medical/Surgical History Diabetic: No -: HTN -: HLD -: Left ring finger -: Left ankle - Family History Mother -: Heart disease Notes: [place] - passed @ 55 Father -: Cancer Notes: Colon cancer - passed @ 65 - Social History Smoking Status: Never smoker Alcohol use: Yes Place of Residence: Home Review of Systems 10-point ROS is otherwise unremarkable Physical Examination - Physical Exam General: Alert, In no apparent distress, Oriented x3 HEENT: Sclerae nonicteric Respiratory: Clear to auscultation bilaterally, Normal air movement Cardiovascular: Edema (Trace bilaterally), Irregular heart rate/rhythm (120- 130s) Gastrointestinal: Soft and benign, No tenderness Musculoskeletal: No tenderness Integumentary: No rashes Neurological: Normal speech, Normal affect - Studies Laboratory Data (last 24 hrs) 01/18/20 10:36: PT 12.1, INR 1.03 01/18/20 10:36: WBC 6.6, Hgb 14.4, Hct 43.0, Plt Count 336 01/18/20 10:36: Sodium 141, Potassium 3.8, BUN 17, Creatinine 1.07, Glucose 134 H, Magnesium 2.4, Total Bilirubin 0.4, AST 21, ALT 34, Alkaline Phosphatase 80 Assessment and Plan - Advance Directives Does patient have a Living Will: No Does patient have a Durable POA for Healthcare: No Physician Review Additional Text: Atrial fibrillation, new onset Hypertension Hyperlipidemia Give digoxin 0.5 mg IV now, and start metoprolol 50 mg b.i.d. Monitor on telemetry Cardiology consulted Therapeutic Lovenox for now Echocardiogram ordered Check TSH/T4 resume home medications Dispo: anticipate dc home in 24hrs Time Spent Managing Pts Care (In Minutes): 55
[2020-01-18 15:46] VITALS: BMI 43.9
[2020-01-18 16:43] LABS: Thyroid Stimulating Hormone 1.43 uIU/mL (0.360-3.740)
[2020-01-18] MEDS ORDERED: POTASSIUM CL SA 10 MEQ TAB PO ONE (17:00)
--- NOTE | 2020-01-18 18:12 | EKG ---
Test Date: 2020-01-18 Test Time: 10:13:53 Crawler Dragline Operator: KENIA MEASUREMENT RESULTS: Intervals: Rate: 122 AR: QRSD: 98 QT: 316 QTc: 450 [place]: P: AR: QRS: 77 T: 57 INTERPRETIVE STATEMENTS: Atrial fibrillation with rapid ventricular response ST elevation, consider inferior injury or acute infarct ACUTE CT Abnormal ECG Compared to ECG 01/29/2019 15:32:06 ST (T wave) deviation now present Myocardial infarct finding now present Sinus rhythm no longer present Electronically Signed On 01-18-20 18:11:15 JOINER APPRENTICE by Yassine Contreras
[2020-01-18] MEDS: METOPROLOL TAR 50 MG TAB PO SCH (20:05)
[2020-01-18] MEDS: ENOXAPARIN 100 MG/ML SYR SQ SCH (20:05)
--- NOTE | 2020-01-19 04:53 | CON ---
Date of Consultation: 01/18/2020 Reason For Admission: Atrial fibrillation. Reason For Consultation: Atrial fibrillation. History Of Present Illness: Mr. Gonzales is a 54-year-old male who has issues with obesity. He weighs 324 pounds. He came in with atrial fibrillation, flutter, cough, and dyspnea. He normally sees Dr. Xiong. He had gone to Dr. iXong because of cough and mild shortness of breath, and was found at Coco Xiong's office to be in atrial fibrillation with a heart rate of 140. The patient has had sympto ms of cough and shortness of breath since January 10. No chest pain, no palpitation reported by carlos post. Denied PND, orthopnea, or pedal edema. Allergies: HE IS ALLERGIC TO PENICILLIN. Past Medical History: Include hypertension. Review of Systems: Negative. Social History: Negative. Family History: Noncontributory. Physical Examination: VITAL SIGNS: Initial pressure is 108/90 with a pulse of 124. HEENT: Negative. Neck: Supple without any bruit, lymphadenopathy, JVD, or thyromegaly. Chest: Clear to auscultation and percussion. Cardiac: Atrial fibrillation. Abdomen: Benign. Extremities: No clubbing, cyanosis, or edema. Diagnostic Data: EKG showed atrial fibrillation. Chest x-ray was normal. His laboratory evaluation s were fairly unremarkable. His BNP was 1745. His troponin was 0.02. Impression And Plan: New-onset atrial fibrillation. The patient should be on Lovenox, metoprolol 50 b.i.d. Echocardiogram should be done. TSH should be checked. We will continue to follow him. He is already on atenolol at home as well as valsartan with hydrochlorothiazide for his hypertension. Carlos oviedo has had some cough and shortness of breath. He is COVID negative. We can certainly control his he art rate, but if he goes home, he should be on anticoagulants. I would like to see what his echocard iogram shows before making further decisions. Hopefully, this may be transient because of his acute bronchitis. We will continue to follow him. ISRAEL/ALISON Voice ID: [id number] Report ID: [id number]
[2020-01-19 05:02] LABS: Magnesium 2.2 mg/dL (1.8-2.4); Potassium 4.3 mmol/L (3.5-5.1)
--- NOTE | 2020-01-19 08:05 | PN ---
Date of Progress Note: 01/19/2020 Subjective: Mr. Gonzales came in yesterday 01/18/2020 with what appeared to be acute bronchitis with c ough and shortness of breath, was found to be in atrial fibrillation at Dr. Xiong's office. He has come to the hospital for that. He has received digoxin and metoprolol. He is on Lovenox. His rhyth m is still in atrial fibrillation but his rate is about 80. Echocardiogram is pending, today TSH was normal. I am comfortable with him going home if the echo is normal. He should be on beta blockers, Eliquis, Xarelto and aspirin, and we will see him in the office in the next few days and if he remai ns in atrial fibrillation for about 3-4 weeks, we will consider a direct cardioversion. It is unknow n how long he was in atrial fibrillation. He was found to be in it incidentally. ISRAEL/ALISON Voice ID: [id number] Report ID: [id number]
[2020-01-19] MEDS: METOPROLOL TAR 50 MG TAB PO SCH (09:38)
[2020-01-19] MEDS: ENOXAPARIN 100 MG/ML SYR SQ SCH (09:39)
[2020-01-19 14:10] VITALS: O2SAT 96
--- NOTE | 2020-01-19 14:13 | ECHO ---
HEIGHT: 6 ft 0 in WEIGHT: 324 lb 0 oz DATE OF STUDY: 01/19/[address]: Francisco J Soni MD 2-DIMENSIONAL: YES M.MODE: YES DOPPLER: YES COLOR FLOW: YES TDS: PORTABLE: DEFINITY: BUBBLE STUDY: DIAGNOSIS: NEW ONSET ATRIAL FIBRILLATION CARDIAC HISTORY: CATHERIZATION: NO SURGERY: NO PROSTHETIC VALVE: NO PACEMAKER: NO MEASUREMENTS (cm) DIASTOLIC (NORMALS) SYSTOLIC (NORMALS) IVSd 1.1 (0.6-1.2) LA Diam 3.2 (1.9-4.0) LVEF 53% LVIDd 4.3 (3.5-5.7) LVIDs 3.2 (2.0-3.5) %FS 27% LVPWd 1.2 (0.6-1.2) Ao Diam 2.6 (2.0-3.7) 2 DIMENSIONAL ASSESSMENT: RIGHT ATRIUM: NORMAL LEFT ATRIUM: NORMAL RIGHT VENTRICLE: NORMAL LEFT VENTRICLE: NORMAL TRICUSPID VALVE: NORMAL MITRAL VALVE: NORMAL PULMONIC VALVE: NORMAL AORTIC VALVE: NORMAL PERICARDIAL EFFUSION: NONE AORTIC ROOT: NORMAL LEFT VENTRICULAR WALL MOTION: NORMAL DOPPLER/COLOR FLOW: NORMAL COMMENTS: NORMAL LEFT VENTRICULAR EJECTION FRACTION 55-60%. ATRIAL FIBRILLATION. TECHNOLOGIST: AUREA FRENCH
[2020-01-19 14:14] VITALS: BP 112/77; TEMP 98.2
--- NOTE | 2020-01-19 19:58 | P.DS ---
Admission Date: 01/18/20 Discharge Date: 01/19/20 Primary Care Provider: Loc Disposition: ROUTINE DISCHARGE Discharge Condition: GOOD Reason for Admission: New onset AFib with RVR Consultations: Cardiology - Dr. Contreras Procedures: Echocardiogram (01/18): normal LVEF: 55-60% LA diameter: 3.2 (normal: 1.9-4.0) Problem List Atrial fibrillation, new onset Hypertension Brief History of Present Illness: 54-year-old male, PMH: HTN, HLD who was sent to ED from PCPs office due to new discovery of atrial fibrillation. He reported 1 week of mildly productive cough and fatigue - thought he was having bronchitis as he typically does around this time of the year. In the ED: workup was unremarkable except for Afib with RVR in the 120-130s, BNP: 1745. CXR: No acute cardiopulmonary process COVID negative. Hospital Course: Cardiology was consulted. His atenolol was switched to metoprolol 50mg BID. His heart rate improved to 70-90s. He denied any palpitations or dizziness. He underwent echocardiogram and was discharged home on metoprolol and xarelto. He is to f/u with cardiology in ~2 weeks. If remains in afib, cardioversion may be performed at that time. Further discussion regarding length of anticoagulation will be done at that time as well. Patient with CHADSVASc: 1. Vital Signs/Physical Exam: Temp Pulse Resp BP Pulse Ox 98.2 F 105 H 20 112/77 96 01/19/20 12:00 01/19/20 12:00 01/19/20 12:00 01/19/20 12:00 01/19/20 12:00 General: Alert, In no apparent distress HEENT: Sclerae nonicteric Respiratory: Clear to auscultation bilaterally, Normal air movement Cardiovascular: No edema, No murmurs, Irregular heart rate/rhythm (afib, HR: 80s) Gastrointestinal: Soft and benign, Non-distended, No tenderness Musculoskeletal: No tenderness Integumentary: No rashes Neurological: Normal speech, Normal affect Laboratory Data at Discharge: WBC 6.6 K/uL (4.3-10.9) 01/18/20 10:36 Hgb 14.4 g/dL (13.6-17.9) 01/18/20 10:36 Hct 43.0 % (39.6-49.0) 01/18/20 10:36 Plt Count 336 K/uL (152-406) 01/18/20 10:36 PT 12.1 SECONDS (9.5-12.5) 01/18/20 10:36 INR 1.03 01/18/20 10:36 Sodium 138 mmol/L (136-145) 01/19/20 03:38 Potassium 4.3 mmol/L (3.5-5.1) 01/19/20 03:38 BUN 19 mg/dL (7-18) H 01/19/20 03:38 Creatinine 1.13 mg/dL (0.55-1.3) 01/19/20 03:38 Glucose 107 mg/dL (74-106) H 01/19/20 03:38 Magnesium 2.2 mg/dL (1.8-2.4) 01/19/20 03:38 Total Bilirubin 0.4 mg/dL (0.2-1.0) 01/18/20 10:36 AST 21 U/L (15-37) 01/18/20 10:36 ALT 34 U/L (12-78) 01/18/20 10:36 Alkaline Phosphatase 80 U/L (45-117) 01/18/20 10:36 Home Medications: Guaifenesin [Mucinex] 1 tab PO PRN PRN 01/18/20 Valsartan/Hydrochlorothiazide [Valsartan-Hctz 320-25 mg Tab] 1 tab PO DAILY 01/18/20 Metoprolol Tartrate [Lopressor*] 50 mg PO BID 30 Days #60 tab 01/19/20 Rivaroxaban [Xarelto] 20 mg PO DAILY AT SUPPER 30 Days #30 tablet 01/19/20 New Medications: Metoprolol Tartrate [Lopressor*] 50 mg PO BID 30 Days #60 tab Rivaroxaban [Xarelto] 20 mg PO DAILY AT SUPPER 30 Days #30 tablet Patient Discharge Instructions: follow up with PCP within 1 week. follow up with Cardiology - Dr. Contreras in ~2 weeks. new medications on discharge: metoprolol 50mg twice a day, Xarelto 20mg daily with dinner. (stop taking atenolol) Diet: AHA Activity: Ad girma Followup: Yassine Contreras MD [ACTIVE - CAN ADMIT] - Garrison Xiong MD [Primary Care Provider] - Time spent managing pt's care (in minutes): 35
== END 2020-01-19 13:59 | disposition home or self-care (01) ==
LOC: ER 09:58 → ERHOLD 12:50 → 2ND 15:26
PROVIDERS: ADMIT Hospitalist; ATTEND Hospitalist
DX: I48.91 Unspecified atrial fibrillation (principal); I10 Essential (primary) hypertension; E78.5 Hyperlipidemia, unspecified; Z20.828 Contact with and (suspected) exposure to other viral communicable diseases; R94.31 Abnormal electrocardiogram [ECG] [EKG]
CPT/HCPCS: 93005 ×2; 93306; 85025; 80048 ×2; 36415; 83735 ×2; 85610; 80076; 84443; 84484; 84439; 83880; 71045; 94760 ×3; 96360; 99285; U0003; J1160; J1650 ×2; J7030; G0378 ×3

== ENCOUNTER 2020-02-01 06:34 | Day surgery (SDC) | payer BC ==
[2020-01-31 14:21] LABS: Absolute Lymphocytes (CBC) 2.4 K/uL (0.7-4.9); Basophils % 0.6 % (0-1.3); Hematocrit 37.5 % (39.6-49.0); MPV 8.7 fL (7.6-11.3); RBC Red Blood Cell Count 3.86 M/uL (4.33-5.43)
[2020-01-31 14:27] LABS: Protime INR 1.24
[2020-01-31 14:30] LABS: Potassium 4.1 mmol/L (3.5-5.1)
--- OUTSIDE RECORDS SUMMARY | 2020-02-01 06:36 | XMS REPORT | Clinical Summary ---
:1965 Author Organization [facility] Address [address] [place] [id number] Care Team Providers Name Role Phone Asked, Pcp Primary Care Provider Unavailable Allergies Not on File Medications Not on file Active Problems Not on file Encounters Date Type Specialty Care Team Description 12/30/2019 Clinical Support Corporate Wellness Faith Wright MD 12/30/2019 Travel after 01/31/2019 Immunizations Name Administration Dates Next Due FLUCELVAX QUAD PF 12/30/2019 Social History Tobacco Use Types Packs/Day Years Used Date Never Assessed Sex Assigned at Date Recorded Not on file Last Filed Vital Signs Not on file Plan of Treatment Health Maintenance Due Date Last Done Comments COLONOSCOPY SCREENING 2015 SHINGLES VACCINES (#1) 2015 INFLUENZA VACCINE Completed 12/30/2019 Results Not on fileafter 01/31/2019 Advance Directives For more information, please contact: [phone] Type Date Recorded Patient Telecom Assistant Explanati on Advance Directives, Living Will and Medical Power of Summer Babysitter
--- OUTSIDE RECORDS SUMMARY | 2020-02-01 06:36 | XMS REPORT | Continuity of Care Document ---
:1965 Author Organization [facility] t Address [address] [place] [address] Care Team Providers Name Role Phone Asked, Pcp Primary Care Physician Unavailable Adriana ORTEGA Attending Clinician Payers Payer Name Policy Type Policy Effective Date Expiration Date Sour ce Number BCBSBCBS CHOICE [id number] 2016 [place] PPO/[employer] 00:00:00 [employer] EMPL [id number] 2016-Presen tPPO Problems This patient has no known problems. Allergies, Adverse Reactions, Alerts This patient has no known allergies or adverse reactions. Social History Social Habit Start Date Stop Date Quantity Comments Source Sex Assigned At Marinanoel soliz [employer] Medications This patient has no known medications. Immunizations Ordered Immunization Filled Immunization Date Status Commen ts Source Name Name FLUCCARLINEX EDEN PF 2019-12-30 [facility] 00:00:00 [employer] Procedures This patient has no known procedures. Plan of Care Planned Activity Planned Date Details Comments Source Future Scheduled 2015 COLONOSCOPY SCREENING Oscar jaffe [employer] Test 00:00:00 [code = COLONOSCOPY SCREENING] Future Scheduled 2015 SHINGLES VACCINES [place] [employer] Test 00:00:00 (#1) [code = SHINGLES VACCINES (#1)] Encounters Start End Encounter Admission Attending Care Care Encounter Source Date/Time Date/Time Type Type Clinicians Facility Department ID 2019-12-30 2019-12-30 Outpatient [facility] [id number] [place] 00:00:00 00:00:[address] [facility] [id number] Results This patient has no known results.
[2020-02-01] MEDS ORDERED: NA CHLORIDE 0.9% 500 ML ONE (07:01)
[2020-02-01 07:47] VITALS: TEMP 97.6
[2020-02-01] MEDS ORDERED: ATROPINE SULF 1 MG/10 ML SYR IV ONE (08:28)
[2020-02-01] MEDS ORDERED: MIDAZOLAM HCL 5 MG/5 ML INJ ONE ×2 (08:28→08:29)
[2020-02-01] MEDS ORDERED: FLUMAZENIL 0.1 MG/ML (5 mL VIAL) IV ONE (08:29)
[2020-02-01] MEDS ORDERED: MIDAZOLAM HCL 2 MG/2 ML INJ ONE ×2 (09:30)
--- NOTE | 2020-02-01 09:53 | OP ---
Surgeon: Yassine Contreras MD Lining Machine Operator: Maryam Callaway. Reason For Admission: Direct current cardioversion for atrial fibrillation. Indication: Mr. Gonzales is a 54-year-old white male who has a history of hypertension, previously hea lthy, new onset atrial fibrillation, unresponsive to beta-blockers, been on Xarelto for about 2-3 wee ks with symptoms of shortness of breath. 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 On e shock of 100 joules was delivered with successful cardioversion from atrial fibrillation to sinus r hythm. There were no complications. No blood loss. Total conscious sedation is 30 minute. Assessment and plan is atrial fibrillation, status post successful cardioversion to sinus rhythm. We will stop metoprolol, put him on Multaq 400 b.i.d. Continue Xarelto. He will go home whenever he w akes up and see me in the office in 2 weeks. ISRAEL/ALISON Voice ID: [id number] Report ID: [id number]
[2020-02-01 11:55] VITALS: O2SAT 98
[2020-02-01 11:56] VITALS: BP 134/80
--- NOTE | 2020-02-02 11:48 | EKG ---
Test Date: 2020-02-01 Test Time: 09:26:12 Stove Fitter: PHILIPPE MEASUREMENT RESULTS: Intervals: Rate: 65 TN: 140 QRSD: 108 QT: 418 QTc: 434 [place]: P: 41 TN: 140 QRS: 60 T: 48 INTERPRETIVE STATEMENTS: Normal sinus rhythm Normal ECG Compared to ECG 01/18/2020 10:23:43 Atrial fibrillation no longer present Electronically Signed On 02-02-20 11:40:51 PRINTING PLATE CLERK by Yassine Contreras
== END 2020-02-01 11:10 | disposition home or self-care (01) ==
LOC: CCL 06:34
DX: I48.91 Unspecified atrial fibrillation (principal); Z20.828 Contact with and (suspected) exposure to other viral communicable diseases; Z79.01 Long term (current) use of anticoagulants
CPT/HCPCS: 36415; 80048; 85025; 85610; 85730; 92960; 93005; J2250; J7040; U0002